=== PATIENT | female | born 1995 | race African-American/Black ===

== ENCOUNTER 2020-06-22 07:56 | Emergency (ER) | payer SELFPAY ==
[2020-06-22 08:00] VITALS: BP 132/75
--- NOTE | 2020-06-22 08:58 | ER Document Report ---
HPI - HPI Time Seen by Provider: 06/22/20 08:10 Pain Level: 0 Context: Patient is a 24-year-old female presents emergency department with a chief complaint of STD. Patient reports that she had unprotected sex about 1 week ago. States that she is not currently having symptoms such as vaginal bleeding, vaginal discharge or pelvic pain. Patient states that she was called and told that her partner was tested positive for chlamydia. Patient is seeking a medical attention to get treated for this. She does have a Nexplanon control implant. States her last menstrual cycle was at the beginning of May 2020 Past Medical History - General Information source: Patient - Social History Smoking Status: Never Smoker Chew tobacco use (# tins/day): No Frequency of alcohol use: None Drug Abuse: None Lives with: Family Family History: None - Past Medical History Cardiac Medical History: Reports: None Pulmonary Medical History: Reports: None EENT Medical History: Reports: None Neurological Medical History: Reports: None Endocrine Medical History: Reports: None Renal/ Medical History: Reports: None Malignancy Medical History: Reports: None GI Medical History: Reports: None Musculoskeletal Medical History: Reports None Skin Medical History: Reports None Psychiatric Medical History: Reports: None Traumatic Medical History: Reports: None Infectious Medical History: Reports: None Past Surgical History: Reports: Hx Cholecystectomy Vertical Provider Document - CONSTITUTIONAL Agree With Documented VS: Yes Exam Limitations: No Limitations General Appearance: No Apparent Distress - HEENT HEENT: Atraumatic, Normal ENT Exam, Normocephalic, PERRLA - NECK Neck: Normal Inspection - RESPIRATORY Respiratory: Breath Sounds Normal, No Respiratory Distress - CARDIOVASCULAR Cardiovascular: Regular Rate, Regular Rhythm - GI/ABDOMEN Gastrointestinal: Abdomen Soft, Abdomen Non-Tender, Normal Bowel Sounds - BACK Back: Normal Inspection Notes: No CVA tenderness. - MUSCULOSKELETAL/EXTREMETIES Musculoskeletal/Extremeties: FROM, Non-Tender, No Edema - NEURO Level of Consciousness: Awake, Alert - DERM Integumentary: Warm, Dry, No Rash Course - Re-evaluation Re-evalutation: 06/22/20 09:39 Discussed the plan of care with the patient. Patient will be treated for gonorrhea and chlamydia. - Vital Signs Vital signs: Temp Pulse Resp BP Pulse Ox 98.6 F 79 18 132/75 H 100 06/22/20 08:00 06/22/20 08:00 06/22/20 08:00 06/22/20 08:00 06/22/20 08:00 - Laboratory Laboratory results interpreted by me: 06/22/20 09:33 Laboratory 06/22/20 08:56 Urine Color YELLOW Urine Appearance CLEAR Urine pH 5.0 Ur Specific [place] 1.029 Urine Protein NEGATIVE Urine Glucose (UA) NEGATIVE Urine Ketones NEGATIVE Urine Blood NEGATIVE Urine Nitrite NEGATIVE Urine Bilirubin NEGATIVE Urine Urobilinogen NEGATIVE Ur Leukocyte Esterase NEGATIVE Urine WBC (Auto) 3 Urine RBC (Auto) 1 U Hyaline Cast (Auto) 1 Squamous Epi Cells Auto <1 Urine Ascorbic Acid NEGATIVE Urine HCG, Qual NEGATIVE Discharge - Discharge Clinical Impression: Routine screening for STI (sexually transmitted infection), STD exposure Condition: Stable Disposition: HOME, SELF-CARE Additional Instructions: Today are seen emergency department after being exposed to a sexually transmitted disease, chlamydia. You are prophylactically be treated for gonorrhea and chlamydia. We will call you with your gonorrhea and chlamydia test results. Please refrain from sexual intercourse for at least 14 days. It is advised that all sexual partners get tested as well and treated appropriately. Please practice safe sex with the use of a condom.
[2020-06-22 09:17] LABS: APPEARANCE,URINE CLEAR; BILIRUBIN,URINE NEGATIVE (NEGATIVE); COLOR,URINE YELLOW; GLUCOSE, URINE NEGATIVE (NEGATIVE); KETONES,URINE NEGATIVE (NEGATIVE); LEUKOCYTE ESTERASE,URINE NEGATIVE (NEGATIVE); NITRITE,URINE NEGATIVE (NEGATIVE); PROTEIN,URINE NEGATIVE (NEGATIVE); URINE SPECIFIC GRAVITY 1.029; UROBILINOGEN,URINE NEGATIVE mg/dL (<2.0)
[2020-06-22] MEDS ORDERED: AZITHROMYCIN 250 MG TABLET PO ONE (09:32)
[2020-06-22] MEDS ORDERED: CEFTRIAXONE INJ 250 MG VIAL IM ONE (09:32)
[2020-06-22] MEDS ORDERED: LIDOCAINE 1% INJ-PF (10 MG/ML) 30 ML SDV INJ ONE (09:32)
[2020-06-22 10:40] LABS: CHLAM PCR NOT DETECTED (NOT DETECT)
== END 2020-06-22 09:43 | disposition home or self-care (01) ==
LOC: ER 07:56
DX: Z20.2 Contact with and (suspected) exposure to infections with a predominantly sexual mode of transmission (principal); Z97.5 Presence of (intrauterine) contraceptive device
CPT/HCPCS: 99284; 96372; 81025; 81001; 87491; 87591; J3490; J0696